=== PATIENT | male | born 1955 | race Caucasian/White ===

== ENCOUNTER 2018-11-08 10:00 | Inpatient (IN) | payer OTHER ==
[~2018-11-08] VITALS: Ht 177.8 cm; Wt 62.6 kg
[~2018-11-08 10:00] MED LIST: ACET325; BENZ2; CETI5; Carbidopa-Levo1 EAC1 PO; DOCU100 PO; FLONASE ALLERG9.9 ML; IBUP100S; LEVSOD75 PO; OLAN5 PO; OMEPRAZOLE MAGN20 MG; REFRESH OPTIVE1 EACH; [UNRECOGNIZED DRUG - OTHER]
[2018-11-08 10:20] LABS: BASOPHILS ABSOLUTE AUTO 0.03 K/mm3 (0.00-0.23); BASOPHILS PERCENT AUTO 1 % (0-2); EOSINOPHILS ABSOLUTE AUTO 0.02 K/mm3 (0.00-0.68); EOSINOPHILS PERCENT AUTO 0 % (0-6); Hematocrit 34.7 % (37.0-53.0); Hemoglobin 11.7 g/dL (13.5-17.5); IMMATURE GRAN ABSOLUTE AUTO 0.02 K/mm3 (0.00-0.10); IMMATURE GRAN PERCENT AUTO 0 % (0-1); LYMPHOCYTES ABSOLUTE AUTO 1.48 K/mm3 (0.84-5.20); LYMPHOCYTES PERCENT AUTO 33 % (21-46); MONOCYTES ABSOLUTE AUTO 0.46 K/mm3 (0.16-1.47); MONOCYTES PERCENT AUTO 10 % (4-13); Mean Corpuscular HGB 32.2 pg (26.0-34.0); Mean Corpuscular HGB Conc 33.7 g/dL (31.5-36.5); Mean Corpuscular Volume 96 fL (80-100); NEUTROPHILS PERCENT AUTO 56 % (41-73); Platelet Count 157 K/mm3 (150-400); RDW Coefficient Variation 12.3 % (11.7-14.2); RDW Standard Deviation 42.6 fL (35.1-46.3); Red Blood Cell Count 3.63 M/mm3 (4.30-5.90); White Blood Cell Count 4.51 K/mm3 (4.00-11.30)
[2018-11-08 10:39] LABS: Alanine Aminotransfer (ALT/SGP 15 U/L (12-78); Albumin, Blood 3.3 g/dL (3.4-5.0); Albumin/Globulin Ratio 1.1 (0.8-1.8); Alk Phos 56 U/L (50-136); Anion Gap 3 mmol/L (6-16); Aspartate Aminotrans (AST/SGOT 11 U/L (12-37); Bilirubin, Total 0.3 mg/dL (0.1-1.0); Blood Urea Nitrogen 27 mg/dL (8-24); Bun/Creatinine Ratio 24.1 (12.0-20.0); CO2, Blood 30 mmol/L (21-32); Calcium, Blood 8.2 mg/dL (8.5-10.1); Chloride, Blood 108 mmol/L (98-108); Creatinine, Blood 1.12 mg/dL (0.60-1.20); Globulin, Blood 2.9 g/dL (2.2-4.0); Glomerular Filtration Rate >60 (60-); Glucose, Blood 119 mg/dL (70-99); Potassium, Blood 4.2 mmol/L (3.5-5.5); Sodium, Blood 141 mmol/L (136-145); Total Protein, Blood 6.2 g/dL (6.4-8.2); Troponin I <0.015 ng/mL (0.000-0.040)
[2018-11-08] MEDS ORDERED: BENZ2 PO (11:16)
[2018-11-08] MEDS ORDERED: Zantac150 MG PO (11:17)
[2018-11-08] MEDS ORDERED: ERYT1OIN BOTHEYES (11:17)
[2018-11-08] MEDS ORDERED: CYCL0.05OP BOTHEYES (11:20)
[2018-11-08 11:26] LABS: Source, Urine Clean Catch
[2018-11-08 11:39] LABS: Bilirubin, Urine Neg (Neg); Blood, Urine Neg (Neg); Glucose Qualitative, Urine Neg (Neg); Ketones, Urine Neg (Neg); Leukocyte Esterase, Urine Neg (Neg); Nitrite, Urine Neg (Neg); Protein, Urine Neg (Neg); Urobilinogen, Urine NORM (Normal)
[2018-11-08 11:51] LABS: Appearance, Urine Clear (Clear); Color, Urine Yellow (P-Yellow)
[2018-11-08 12:01] LABS: U Amphetamine Screen Not Detected; U Barbituate Screen Not Detected; U Benzodiazapine Screen Not Detected; U Buprenorphine Screen Not Detected; U Cannabinoids Screen Not Detected; U Cocaine Screen Not Detected; U Methadone Screen Not Detected; U Methamphetamine Screen Not Detected; U Opiates Screen Not Detected; U Oxycodone Screen Not Detected; U Phencyclidine Screen Not Detected; U Propoxyphene Screen Not Detected
[2018-11-08] MEDS ORDERED: LEVSOD100 PO (14:06)
[2018-11-08] MEDS ORDERED: Refresh Eye Dr1 EACH BOTHEYES (14:07)
[2018-11-08] MEDS ORDERED: OLAN5 PO (14:08)
[2018-11-08] MEDS ORDERED: Ibuprofen Ib200 MG PO (14:11)
[2018-11-08] MEDS ORDERED: TRIPLE ANTIBIO1 EACH TOP (14:12)
[2018-11-08] MEDS ORDERED: Cetirizine HCl10 MG PO (14:12)
[2018-11-08] MEDS ORDERED: Flonase 0.05% N16 GM (14:13)
--- NOTE | 2018-11-08 18:35 | NUR ---
RECEIVED REPORT FROM SHOOK MACHINE OPERATOR AND ASSUMED CARE OF PATIENT. THIS PATIENT IS NON-VERBAL, HE DOSE SHAKE HIS HEAD AND TRY TO VERBALIZE YES/NO TO ANSWER YES/NO QUESTIONS. HE DID SAY "PAU" WHEN I ASKED IF HE LIKES TO BE CALLED DON, OR PAU. NO OTHER WORDS RECOGNIZED TO THIS POINT. COMPLETED ADMISSION PAPERWORK FROM PRIOR HISTORY NO CAREGIVER AT BEDSIDE. WILL CONTINUE TO MONITOR AND GIVE REPORT TO NOC RN.
[2018-11-09 04:18] LABS: BASOPHILS ABSOLUTE AUTO 0.03 K/mm3 (0.00-0.23); BASOPHILS PERCENT AUTO 1 % (0-2); EOSINOPHILS ABSOLUTE AUTO 0.04 K/mm3 (0.00-0.68); EOSINOPHILS PERCENT AUTO 1 % (0-6); Hematocrit 34.8 % (37.0-53.0); Hemoglobin 11.6 g/dL (13.5-17.5); IMMATURE GRAN ABSOLUTE AUTO 0.02 K/mm3 (0.00-0.10); IMMATURE GRAN PERCENT AUTO 0 % (0-1); LYMPHOCYTES ABSOLUTE AUTO 1.32 K/mm3 (0.84-5.20); LYMPHOCYTES PERCENT AUTO 27 % (21-46); MONOCYTES ABSOLUTE AUTO 0.47 K/mm3 (0.16-1.47); MONOCYTES PERCENT AUTO 10 % (4-13); Mean Corpuscular HGB 32.2 pg (26.0-34.0); Mean Corpuscular HGB Conc 33.3 g/dL (31.5-36.5); Mean Corpuscular Volume 97 fL (80-100); Mean Platelet Volume 10.4 fL (9.1-12.4); NEUTROPHILS ABSOLUTE AUTO 3.06 K/mm3 (1.96-9.15); NEUTROPHILS PERCENT AUTO 62 % (41-73); Platelet Count 158 K/mm3 (150-400); RDW Coefficient Variation 12.3 % (11.7-14.2); RDW Standard Deviation 43.8 fL (35.1-46.3); White Blood Cell Count 4.94 K/mm3 (4.00-11.30)
[2018-11-09 04:44] LABS: Anion Gap 6 mmol/L (6-16); Blood Urea Nitrogen 19 mg/dL (8-24); Bun/Creatinine Ratio 22.7 (12.0-20.0); CO2, Blood 27 mmol/L (21-32); Calcium, Blood 7.9 mg/dL (8.5-10.1); Chloride, Blood 111 mmol/L (98-108); Creatinine, Blood 0.84 mg/dL (0.60-1.20); Glomerular Filtration Rate >60 (60-); Glucose, Blood 84 mg/dL (70-99); Potassium, Blood 3.8 mmol/L (3.5-5.5); Sodium, Blood 144 mmol/L (136-145)
--- NOTE | 2018-11-09 05:08 | NUR ---
SHIFT SUMMARY: PATIENT BLADDER SCAN REVEALED >999, MD NOTIFIED, ORDERS RECIEVED. UO WAS 1100, VSS, CALL LIGHT WITHIN REACH, PATIENT LETHARGIC BUT WOKE WITH PHYSICAL STIMULUS. BED LOW AND LOCKED WITH EXIT ALARM ON.
[2018-11-09 05:20] LABS: Source, Urine Catheter
[2018-11-09 05:28] LABS: Bilirubin, Urine Neg (Neg); Blood, Urine Neg (Neg); Glucose Qualitative, Urine Neg (Neg); Ketones, Urine Neg (Neg); Leukocyte Esterase, Urine Neg (Neg); Nitrite, Urine Neg (Neg); Protein, Urine Neg (Neg); Specific Gravity, Urine 1.015 (1.003-1.022); Urobilinogen, Urine NORM (Normal)
[2018-11-09 05:37] LABS: Appearance, Urine Clear (Clear); Color, Urine Yellow (P-Yellow)
--- NOTE | 2018-11-09 08:09 | NUR ---
pt laying in bed on his side, wakes easily, follows commands but needs lot of direction, seems very impulsive, alert, speech is garbled, yes/no is clear, denies pain, lungs are clear t/o, resp even and unlabored, no cough noted, hrr, tele in place running sr per monitor, see strip, no edema noted, ppp+2, cap refill <3sec, vs stable, afebrile, iv sites are clear and patent, btx4, abd flat soft nontender, voids via salter at this time, skin c/w/d, maew, marlin, call light in reach.
--- NOTE | 2018-11-09 13:30 | NUR ---
pt resting in bed, sleeps when left undisturbed. no complaints, is a bit easier to understand. sbp is over 100 will change to medical status. call light in reach.
--- NOTE | 2018-11-09 17:46 | NUR ---
PT WILL BE MOVING TO MEDICAL FLOOR, REPORT TO JOHNNA WEAVER, WILL TAKE PT AND ALL BELONGINGS. HAVE BEEN DOING BLADDER TRAINING. CALL LIGHT IN REACH.
--- NOTE | 2018-11-09 18:18 | NUR ---
PT WAS TAKEN TO MEDICAL FLOOR VIA BED WITH CHARGE NURSE AND MULTI SHARE PROGRAM COORDINATOR.
--- NOTE | 2018-11-09 18:50 | NUR ---
SHIFT SUMMARY PATIENT TRANSFERED FROM PCU 5. A&O X4. SPEECH IS GARBLED AND HARD TO UNDERSTAND. DENIES ANY PAIN, SOB, OR NAUSEA. BED ALARM IS IN PLACE. RN WILL CONTINUE TO MONITOR.
--- NOTE | 2018-11-10 04:33 | NUR ---
SHIFT SUMMARY: 63 Y/O MALE RESTED COMFORTABLY ALL SHIFT. PT OCCASIONALLY TRIES CLIMB OOB AND FOLLOWS REDIRECTION BY STAFF WELL. PT MUMBLES INCOHERENT WORDS AND VOICES ONLY YES/NO RESPONSES TO NURSING STAFF. PT APPEARS TO HAVE NO PAIN OR NAUSEA. FREY DRAINING CLEAR YELLOW FLUID (BLADDER TRAINING WITH FREY CLAMPED FOR SHORT INTERVALS LAST NIGHT). PTS BED ALARM APPLIED, BED LOW POSITION, CALL LIGHT AT SIDE.
--- NOTE | 2018-11-10 08:40 | NUR ---
PT PLEASANT COOP SPEAKS GARBLED. ANS YES NO QUEST. ORIENTED TO SELF. HARD TO UNDERSTAND. FOLLOWS SOME COMMANDS. IS SPONTANEOUS, IMPULSIVE. JUMPED UPFROM CHAIR TO BED. HAD TO REDIRECT. STATES MONTH OF B/DAY. KNOWS HERE AT HOSP.H/AR REG, NO MURMER NOTED. PER TELE: NSR AT 82. LUNGS CLEAR, RESP EASY, UNLABORED. ON R/A. BT X4 LAST BM NOT KNOWN BY PT. VOIDS FREY CATH. CLEAR YELLOW FLUID. BED IN LOW POSITION, CALL LITE IN REACH, BED ALARM ON FOR SAFETY
[2018-11-10] MEDS ORDERED: Refresh Plus1 EACH BOTHEYES (12:42)
[2018-11-10] MEDS ORDERED: TAMS.4ER PO (12:42)
--- NOTE | 2018-11-10 16:13 | NUR ---
called dr hirsch at 1600. pt not urinating since d/c gaetano. scan shows 1000+ retention. getting pt to toilet to try in addition to stand for urinal to urinate. if no results call her back.
--- NOTE | 2018-11-10 18:36 | NUR ---
DID TRY TO GET PT TO URINATE ON OWN MANY TIMES TODAY. ONLY ONCE SMALL AMT SUCCESSFUL. AFTER TALK TO DR CONTRERAS, ORDERS FOR STRAIGHT CATH IF OVER 350 CC AND BLADDER SCAN Q8. DID CATH THIS NIKUNJ AND PUT OUT 950. CALLED ALF AND ADVISED HE STAYING TONITE FOR SURE. PT STILL GARBLED TALKING, BUT MORE COHEARANT. NO OTHER COONCERNS AT THIS TIME. BED IN LOW POSITION, CALL LITE IN REACH, BED ALARM ON FOR SAFETY
--- NOTE | 2018-11-11 04:45 | NUR ---
SHIFT SUMMARY: 63 Y/O MALE HAD RESTLESS NIGHT AT BEGINNING OF SHIFT WITH PATIENT HAVING INABILITY TO VOID AFTER FREY CATHETER WAS DISCONTINUED ON DAY SHIFT. PT WAS BLADDER SCANNED AT 0130 FOR 927ML AND WAS THUS STRAIGHT CATHED FOR 900ML CLEAR YELLOW FLUID. PT VOICED RELIEF AFTER PROCEDURE COMPLETED. PT HAS NOT VOIDED SINCE CATHETERIZATION COMPLETED WITH ONCOMING DAY SHIFT RN ADVISED. PT CONTINUES TO MUMBLE WORDS THAT ARE NOT UNDERSTANDABLE TO STAFF; PT IS ABLE TO FOLLOW VERY SIMPLE VERBAL COMMANDS AND RESPONDS WITH YES OR NO ANSWERS. PT DENIES PAIN OR NAUSEA. PTS BALANCE AND ABILITY TO AMBULATE VERY UNSTEADY WITH ONE STANDBY ASSIST REQUIRED AT ALL TIMES. PT VERY IMPULSIVE AT TIMES AND REQUIRES LOTS REDIRECTION BY STAFF. PTS BED ALARM APPLIED ALL SHIFT, BED LOW POSITION, CALL LIGHT AT SIDE.
--- NOTE | 2018-11-11 07:09 | NUR ---
0630 PT RESTING QUIETLY, NO VOID NOTED ALL NIGHT SINCE STRAIGHT CATHETERIZATION DONE AT 0130. PT WALKED INTO BATHROOM BY STAFF WITH NO SUCCESS VOIDING.
--- NOTE | 2018-11-11 19:20 | NUR ---
PT AOX2 HARD TO UNDERSTAND. PT SEEMS TO BE AT BASELINE. PT WAS ABLE TO VOID THIS AM, BUT THE DAY PROGRESSED BEGAN TO HAVE TROUBLE VOIDING. PT WAS STAIGHT CATHED AFTER SECOND BLADDER SCAN GETTING 450 MLS OUPUT. PT IS VERY IMPULSIVE AND FAST AND GETS OUT OF BED OR CHAIR SETTING OF ALARM THROUGHOUT THE DAY. WILL CONTINUE TO MONITOR.
--- NOTE | 2018-11-12 01:50 | NUR ---
11/11/18 2330 BLADDER SCANNED FOR GREATER THAN 1000 ML. 11/12/18 0010 PT GOT UP AND VOIDED 500 ML. PT WAS BLADDER SCANNED AGAIN POST VOID WITH 500ML NOTED. THIS NURSE REVIEWED FINDINGS WITH JULIO C BOWDEN ORGANIC SECTION TECHNICAL LEAD NURSE AND STAFF WILL WALK PATIENT INTO BATHROOM AND ATTEMPT VOID AGAIN TILL 0300 AND THEN RECHECK BLADDER SCAN.
--- NOTE | 2018-11-12 04:34 | NUR ---
SHIFT SUMMARY: 63 Y/O MALE RESTED COMFORTABLY ALL SHIFT. PT WAS ABLE TO VOID ONCE, HOWEVER; HAD 550ML BLADDER SCAN AFTER VOID, THUS WAS STRAIGHT CATHED X 1 FOR 550ML, TOLERATED PROCEDURE WELL. PT ALERT AND ORIENTED X 3, ABLE TO FOLLOW SIMPLE VERBAL COMMANDS, VERY IMPULSIVE AT TIMES (BED ALARM APPLIED), DENIES PAIN OR NAUSEA. PT ONLY ABLE TO MUMBLE WORDS THAT ARE NOT UNDERSTANDABLE, ANSWERS WITH YES/NO RESPONSES ONLY. PT BED LOW POSITION, CALL LIGHT AT SIDE.
--- NOTE | 2018-11-12 10:55 | NUR ---
PT REQUIRED STRAIGHT CATH AT THIS TIME FOR BLADDER SCAN GREATER THAN 600ML, 550ML DRAINED FROM BLADDER.
--- NOTE | 2018-11-12 17:20 | NUR ---
SHIFT SUMMARY. PT HAS VOIDED THIS AFTERNOON, WHICH WAS ONCE THIS SHIFT UNASSISTED, POST VOID RESIDUAL GREATER THAN 350ML. PT REQUIRED TO BE STRAIGHT CATHED LATE THIS MORNING FOR BLADDER SCAN OF 650. BED/CHAIR ALARM FOR SAFETY PT IS IMPULSIVE AND HIGH FALL RISK. PT DENEIS PAIN, SOB, N/V. NO OTHER CHANGES.
--- NOTE | 2018-11-13 04:21 | NUR ---
SHIFT SUMMARY: 63 Y/O MALE RESTED COMFORTABLY ALL SHIFT. PT WAS UNABLE TO VOID ALL SHIFT, BLADDER SCANNED FOR OVER 999ML AND THEN STRAIGHT CATHED FOR 950ML, TOLERATED PROCEDURE WELL. PT CONTINUES TO BE IMPULSIVE AT TIMES WITH BED ALARM SET OFF, PT GAIT UNSTEADY VIA WALKER X 1 STANDBY ASSIST. PT ABLE TO FOLLOW SIMPLE VERBAL COMMANDS, WORDS ARE ALL GARBLED WHEN SPOKEN BY PATIENT. PT DENIES PAIN OR NAUSEA (NO MOANING NOTED). PTS BED LOW POSITION, CALL LIGHT AT SIDE.
--- NOTE | 2018-11-13 09:54 | NUR ---
PT WITH UNMEASURED VOID IN TOILET AT 0830. 0930 POST VOID RESIDUAL BLADDER SCAN 212ML.
--- NOTE | 2018-11-13 12:55 | NUR ---
SPOKE WITH DR. IVY IN REGARDS TO PT VOIDING TWICE UNASSISTED AND POST VOID RESIDUAL MD MORA REPORTED THAT SHE WOULD SEE THE PT NEXT THE CAREGIVER REPORTED TO THIS RN THAT THE PT COULD BE PICKED UP IF THE D/C WAS COMPLETED BEFORE 1400.
--- NOTE | 2018-11-13 12:57 | NUR ---
PT'S SKILLED NURSING NOTIFIED THAT MD WAS TO SEE PT NEXT AND ATTEMPT TO HAVE D/C COMPLETED PRIOR TO 1400.
--- NOTE | 2018-11-13 16:21 | NUR ---
1603 PT DISCHARGED TO [facility] VIA W/C TRANSPORT, FACILITY AWARE THAT PT HAD BEEN PICKED UP. D/C PACKET SENT WITH PT. NEW RX FAXED TO [facility] IN [place] PER [facility] PREFERENCE. PT HAD 4 UNMEASURED VOIDS THIS SHIFT. NO FURTHER ISSUES WITH RETENTION. NO NEW CHANGES OR CONCERNS.
== END 2018-11-13 16:03 | disposition home or self-care (01) | DRG 725 ==
LOC: ER 10:00 → PCU 10:01 → ERHOLD 10:01 → PCU 17:09 → MEDS 11-09 18:14 → ENPENDDIS 11-13 14:40 → MEDS 11-13 16:03
PROVIDERS: Emergency Medicine; Internal Medicine; ADMIT Internal Medicine
DX: N40.1 Benign prostatic hyperplasia with lower urinary tract symptoms (principal); G92 Toxic encephalopathy; F20.5 Residual schizophrenia; R33.8 Other retention of urine; I95.9 Hypotension, unspecified; F32.9 Major depressive disorder, single episode, unspecified; K21.9 Gastro-esophageal reflux disease without esophagitis; E03.9 Hypothyroidism, unspecified; T50.905A Adverse effect of unspecified drugs, medicaments and biological substances, initial encounter; Y92.9 Unspecified place or not applicable
CPT/HCPCS: 36415; 51701; 51702; 70450; 71045; 80048; 80053; 81003; 83690; 83880; 84443; 84484; 85025; 85379; 93005; 93010; 96361; 96374; 99285-25; J1650; J2405; J7030; J7120

== ENCOUNTER 2019-06-07 08:14 | Emergency (ER) | payer OTHER ==
[~2019-06-07] VITALS: Ht 180.3 cm; Wt 65.8 kg
[~2019-06-07 08:14] MED LIST changes: +BENZ2 PO; +CYCL0.05OP BOTHEYES; +Cetirizine HCl10 MG PO; +ERYT1OIN BOTHEYES; +Flonase 0.05% N16 GM; +Ibuprofen Ib200 MG PO; +LEVSOD100 PO; +Refresh Eye Dr1 EACH BOTHEYES; +Refresh Plus1 EACH BOTHEYES; +TAMS.4ER PO; +TRIPLE ANTIBIO1 EACH TOP; +Zantac150 MG PO
[2019-06-07] MEDS ORDERED: LACTULOSE20 GM/30 M PO (10:37)
[2019-06-07] MEDS ORDERED: CEPH500 PO (11:40)
[2019-06-07 11:44] LABS: Source, Urine Clean Catch
[2019-06-07 11:56] LABS: Bilirubin, Urine Neg (Neg); Blood, Urine Neg (Neg); Glucose Qualitative, Urine Neg (Neg); Ketones, Urine 1+ (Neg); Leukocyte Esterase, Urine Neg (Neg); Nitrite, Urine Neg (Neg); Protein, Urine Neg (Neg); Urobilinogen, Urine NORM (Normal)
[2019-06-07 12:12] LABS: Appearance, Urine Clear (Clear); Color, Urine Yellow (P-Yellow)
== END 2019-06-07 12:38 | disposition home or self-care (01) ==
LOC: ER 08:14
PROVIDERS: Physician Assistant
DX: R33.9 Retention of urine, unspecified (principal); K59.00 Constipation, unspecified; E03.9 Hypothyroidism, unspecified; Z79.899 Other long term (current) drug therapy
CPT/HCPCS: 51798; 74019; 81003; 99283-25

== ENCOUNTER → 2022-03-31 | Outpatient (CLI) | payer OTHER ==
[~2022-03-31] MED LIST changes: +CEPH500 PO; +LACTULOSE20 GM/30 M PO
== END ==
LOC: LAB 12:39 → LAB SHORT 12:39
DX: R33.9 Retention of urine, unspecified (principal)
CPT/HCPCS: 87086

== ENCOUNTER 2022-04-13 10:45 | Emergency (ER) | payer OTHER ==
[~2022-04-13] VITALS: Ht 180.3 cm; Wt 62.1 kg
[2022-04-13] MEDS ORDERED: QUET100 (11:16)
[2022-04-13] MEDS ORDERED: Seroquel Xr50 MG (11:17)
[2022-04-13] MEDS ORDERED: PEPCID20 MG PO (11:17)
[2022-04-13] MEDS ORDERED: MIRALAX17 GM PO (11:17)
[2022-04-13] MEDS ORDERED: MULVITA (11:18)
[2022-04-13] MEDS ORDERED: METAMUCIL POWD798 GM (11:18)
[2022-04-13] MEDS ORDERED: PROBIOTIC1 EA13 PO (11:18)
[2022-04-13] MEDS ORDERED: MELATONIN5 M1 (11:18)
[2022-04-13] MEDS ORDERED: BENZ1 PO (11:19)
[2022-04-13] MEDS ORDERED: PANT40 PO (11:19)
[2022-04-13] MEDS ORDERED: Seroquel Xr50 MG PO (11:19)
[2022-04-13] MEDS ORDERED: CITRATE OF MAG296 M1 (11:20)
[2022-04-13] MEDS ORDERED: SENNA LAXATIVE8.6 MG PO (13:18)
== END 2022-04-13 13:34 | disposition home or self-care (01) ==
LOC: ER 10:45
DX: S30.0XXA Contusion of lower back and pelvis, initial encounter (principal); W19.XXXA Unspecified fall, initial encounter; K59.00 Constipation, unspecified; G20 Parkinson's disease; E03.9 Hypothyroidism, unspecified; Z87.891 Personal history of nicotine dependence; Z79.899 Other long term (current) drug therapy
CPT/HCPCS: 74176; A9270

== ENCOUNTER 2022-04-15 12:47 | Emergency (ER) | payer OTHER ==
[~2022-04-15] VITALS: Ht 180.3 cm; Wt 60.8 kg
[~2022-04-15 12:47] MED LIST changes: +BENZ1 PO; +CITRATE OF MAG296 M1; +MELATONIN5 M1; +METAMUCIL POWD798 GM; +MIRALAX17 GM PO; +MULVITA; +PANT40 PO; +PEPCID20 MG PO; +PROBIOTIC1 EA13 PO; +QUET100; +SENNA LAXATIVE8.6 MG PO; +Seroquel Xr50 MG; +Seroquel Xr50 MG PO
[2022-04-15 16:22] LABS: BASOPHILS ABSOLUTE AUTO 0.07 K/mm3 (0.00-0.23); BASOPHILS PERCENT AUTO 1 % (0-2); EOSINOPHILS ABSOLUTE AUTO 0.09 K/mm3 (0.00-0.68); EOSINOPHILS PERCENT AUTO 1 % (0-6); Hemoglobin 12.2 g/dL (13.5-17.5); IMMATURE GRAN ABSOLUTE AUTO 0.19 K/mm3 (0.00-0.10); IMMATURE GRAN PERCENT AUTO 2 % (0-1); LYMPHOCYTES ABSOLUTE AUTO 1.57 K/mm3 (0.84-5.20); LYMPHOCYTES PERCENT AUTO 19 % (21-46); MONOCYTES ABSOLUTE AUTO 0.84 K/mm3 (0.16-1.47); MONOCYTES PERCENT AUTO 10 % (4-13); Mean Corpuscular HGB Conc 34.9 g/dL (31.5-36.5); Mean Corpuscular Volume 95 fL (80-100); Mean Platelet Volume 9.3 fL (9.1-12.4); NEUTROPHILS ABSOLUTE AUTO 5.74 K/mm3 (1.96-9.15); NEUTROPHILS PERCENT AUTO 68 % (41-73); Platelet Count 247 K/mm3 (150-400); RDW Coefficient Variation 11.6 % (11.7-14.2); RDW Standard Deviation 40.3 fL (35.1-46.3)
[2022-04-15 16:40] LABS: Albumin, Blood 3.3 g/dL (3.4-5.0); Albumin/Globulin Ratio 0.8 (0.8-1.8); Bilirubin, Total 0.2 mg/dL (0.1-1.0); Bun/Creatinine Ratio 21.4 (12.0-20.0); Calcium, Blood 9.3 mg/dL (8.5-10.1); Creatinine, Blood 1.03 mg/dL (0.60-1.20); Globulin, Blood 3.9 g/dL (2.2-4.0); Potassium, Blood 4.2 mmol/L (3.5-5.5); Total Protein, Blood 7.2 g/dL (6.4-8.2)
[2022-04-15 18:27] LABS: Source, Urine Foley catheter
[2022-04-15 18:32] LABS: Appearance, Urine Hazy (Clear); Bilirubin, Urine Neg (Neg); Blood, Urine 4+ (Neg); Color, Urine Yellow (P-Yellow); Glucose Qualitative, Urine Neg (Neg); Ketones, Urine Neg (Neg); Leukocyte Esterase, Urine 3+ (Neg); Nitrite, Urine Neg (Neg); Protein, Urine 3+ (Neg); Specific Gravity, Urine 1.015 (1.003-1.022); Urobilinogen, Urine NORM (Normal)
[2022-04-15 18:40] LABS: Bacteria Mod /hpf; Squamous Epithelial Cells Rare /hpf (Few)
[2022-04-15] MEDS ORDERED: CEPH500 PO (19:20)
== END 2022-04-15 19:32 | disposition home or self-care (01) ==
LOC: ER 12:47
PROVIDERS: Student in an Organized Health Care Education/Training Program
DX: N48.5 Ulcer of penis (principal); K59.00 Constipation, unspecified; E03.9 Hypothyroidism, unspecified; K21.9 Gastro-esophageal reflux disease without esophagitis; Z88.8 Allergy status to other drugs, medicaments and biological substances; Z79.899 Other long term (current) drug therapy; Z87.891 Personal history of nicotine dependence
CPT/HCPCS: 36415; 74018; 80053; 81001; 83605; 85025; A9270

== ENCOUNTER 2022-06-13 17:21 | Inpatient (IN) | payer OTHER ==
[~2022-06-13] VITALS: Ht 175.3 cm; Wt 61.2 kg
[~2022-06-13 17:21] MED LIST changes: +CARBIDOPA-LEVO1 EA15 PO; -Carbidopa-Levo1 EAC1 PO; -MELATONIN5 M1; +MELATONIN5 M1 PO; -MULVITA; +MULVITA PO; -QUET100; +QUETIAPINE FUM400 M3 PO
[2022-06-13 18:46] LABS: BASOPHILS ABSOLUTE AUTO 0.07 K/mm3 (0.00-0.23); BASOPHILS PERCENT AUTO 0 % (0-2); EOSINOPHILS ABSOLUTE AUTO 0.06 K/mm3 (0.00-0.68); EOSINOPHILS PERCENT AUTO 0 % (0-6); Hematocrit 40.2 % (37.0-53.0); Hemoglobin 13.8 g/dL (13.5-17.5); IMMATURE GRAN ABSOLUTE AUTO 0.07 K/mm3 (0.00-0.10); IMMATURE GRAN PERCENT AUTO 0 % (0-1); LYMPHOCYTES ABSOLUTE AUTO 1.59 K/mm3 (0.84-5.20); LYMPHOCYTES PERCENT AUTO 9 % (21-46); MONOCYTES ABSOLUTE AUTO 0.85 K/mm3 (0.16-1.47); MONOCYTES PERCENT AUTO 5 % (4-13); Mean Corpuscular HGB 32.5 pg (26.0-34.0); Mean Corpuscular HGB Conc 34.3 g/dL (31.5-36.5); Mean Corpuscular Volume 95 fL (80-100); Mean Platelet Volume 9.2 fL (9.1-12.4); NEUTROPHILS ABSOLUTE AUTO 15.73 K/mm3 (1.96-9.15); NEUTROPHILS PERCENT AUTO 86 % (41-73); Platelet Count 272 K/mm3 (150-400); RDW Coefficient Variation 12.3 % (11.7-14.2); RDW Standard Deviation 42.6 fL (35.1-46.3); Red Blood Cell Count 4.25 M/mm3 (4.30-5.90); White Blood Cell Count 18.37 K/mm3 (4.00-11.30)
[2022-06-13 19:14] LABS: Albumin, Blood 4.1 g/dL (3.4-5.0); Bilirubin, Total 0.4 mg/dL (0.1-1.0); Bun/Creatinine Ratio 17.4 (12.0-20.0); Calcium, Blood 9.5 mg/dL (8.5-10.1); Creatinine, Blood 1.21 mg/dL (0.60-1.20); Globulin, Blood 4.1 g/dL (2.2-4.0); Potassium, Blood 4.1 mmol/L (3.5-5.5); Total Protein, Blood 8.2 g/dL (6.4-8.2)
[2022-06-13 20:37] LABS: Source, Urine Foley catheter
[2022-06-13 20:39] LABS: Bilirubin, Urine Neg (Neg); Blood, Urine 4+ (Neg); Glucose Qualitative, Urine Neg (Neg); Ketones, Urine Neg (Neg); Leukocyte Esterase, Urine 3+ (Neg); Nitrite, Urine Neg (Neg); Protein, Urine 2+ (Neg); Urobilinogen, Urine NORM (Normal)
[2022-06-13 20:51] LABS: Appearance, Urine Hazy (Clear); Color, Urine Pale Yellow (P-Yellow)
[2022-06-13 20:52] LABS: Bacteria Many /hpf
[2022-06-13 20:53] LABS: Amorphous Mod (0-Heavy); Squamous Epithelial Cells Rare /hpf (Few)
--- NOTE | 2022-06-14 04:59 | NUR ---
NEW ADMIT/SHIFT SUMMARY PT ARRIVED T/ROOM AT 2345. A/OX TO SELF. PT IS UNABLE TO VERBALLY COMMUNICATE. PT CAN RESPOND TO YES OR NO QUESTIONS WITH A THUMBS UP OR DOWN WHEN PROMPTED. PT ADMIT W/UTI; CAME TO ED W/PERSONAL SUPPORT PERSON. PT LIVES IN A [facility]. FACILITY CONTACT NUMBER IS [phone]. PERSONAL SUPPORT/EMERGENCY CONTACT IS RM; [phone]; PT ABLE TO VERIFY WITH A THUMBS UP THAT RM IS OK TO TALK TO REGARDING HIS CARE. PT IS WHEELCHAIR BOUND AT BASELINE; WHEEL CHAIR IN ROOM. PT ARRIVED TO ED W/CHRONIC FREY. NEW FREY PLACED IN ED. FREY PATENT AND DRAINING TO GRAVITY. PERSONAL SUPPORT LEFT HAND WRITTEN NOTE WITH DETAILS REGARDING PAU BOWMAN'S CARE; TOTAL CARE WITH ALL HYGIENE NEEDS. FORGETS LIMITATIONS AND ATTEMPTS OOB/XFERING W/O ASSISTANCE; BED ALARMS USED. MODIFIED FOOD; SOFT/PUREE DIET, NECTAR/HONEY THICK LIQUIDS, NO STRAWS. HX HALLUCINATIONS/DELLUSIONS. DOES NOT LIKE THE DARK. CAN BECOME FRUSTRATED AND YELL; PT CAN NOT BLINK CORRECTLY AND REQUIRES EYE DROPS SEVERAL TIMES A DAY. THIS IS A SUMMARY OF THE NOTES; HAND WRITTEN NOTES PLACED IN PT FILE. PT HAS LEFT AC IF; INFUSING 1 BAG NS; 125MLS HOUR. SKIN IS INTACT; SECOND PACU RN WITH BELKYS LEE. ORIENTED PT TO ROOM AND CALL LIGHT. PT WAS ABLE TO TELL ME WHAT BUTTON TO PUSH FO ASSISTANCE. UNSURE IF PT WILL BE ABLE TO USE CALL LIGHT; WILL CONT WITH REGULAR ROUNDING. BED BRITTNY/LOW. ALARM SET. PT HAS NOT BEEN IMPULSIVE SO FAR. WILL CONT T/MONITOR.
[2022-06-14 07:28] LABS: BASOPHILS ABSOLUTE AUTO 0.05 K/mm3 (0.00-0.23); BASOPHILS PERCENT AUTO 1 % (0-2); EOSINOPHILS ABSOLUTE AUTO 0.08 K/mm3 (0.00-0.68); EOSINOPHILS PERCENT AUTO 1 % (0-6); Hemoglobin 11.9 g/dL (13.5-17.5); IMMATURE GRAN ABSOLUTE AUTO 0.02 K/mm3 (0.00-0.10); IMMATURE GRAN PERCENT AUTO 0 % (0-1); LYMPHOCYTES ABSOLUTE AUTO 1.48 K/mm3 (0.84-5.20); LYMPHOCYTES PERCENT AUTO 18 % (21-46); MONOCYTES ABSOLUTE AUTO 0.66 K/mm3 (0.16-1.47); MONOCYTES PERCENT AUTO 8 % (4-13); Mean Corpuscular Volume 97 fL (80-100); Mean Platelet Volume 9.5 fL (9.1-12.4); NEUTROPHILS ABSOLUTE AUTO 5.94 K/mm3 (1.96-9.15); NEUTROPHILS PERCENT AUTO 72 % (41-73); Platelet Count 204 K/mm3 (150-400); RDW Coefficient Variation 12.3 % (11.7-14.2); RDW Standard Deviation 43.6 fL (35.1-46.3); Red Blood Cell Count 3.61 M/mm3 (4.30-5.90); White Blood Cell Count 8.23 K/mm3 (4.00-11.30)
[2022-06-14 07:42] LABS: Bun/Creatinine Ratio 16.2 (12.0-20.0); Calcium, Blood 8.6 mg/dL (8.5-10.1); Creatinine, Blood 1.11 mg/dL (0.60-1.20); Potassium, Blood 3.9 mmol/L (3.5-5.5)
--- NOTE | 2022-06-14 17:38 | NUR ---
SHIFT SUMMARY NO ACUTE CHANGES DURING SHIFT. PT FOLLOWS SIMPLE COMMANDS, THUMBS UP OR DOWN FOR RESPONSE, NONCOMPREHENSABLE VERBAGE. CHRONIC FREY IN PLACE, DRAINING TO GRAVITY. PT REMAINS ON RA. INTERMITTENT COMPULSIVENESS. SMALL BM X 2, INCONTINENT, ATTENDS IN PLACE. WILL CONTINUE TO MONITOR. CALL LIGHT WITHIN REACH.
--- NOTE | 2022-06-15 04:12 | NUR ---
SHIFT SUMMARY NOC NO ACUTE CHANGES TO REPORT. PT ABLE TO FOLLOW SIMPLE COMMANDS AND RESPONDS TO THUMBS UP OR DOWN. NONSENSICLE AND NONCOMPREHSABLE VERBAGE. PT HAS CX FREY INTACT AND PATENT DRAINING YELLOW URINE TO GRAVITY. PT IS CURRENTLY RESTING WITH BED ALARM ON, BED IN LOWEST POSITION, AND CALL LIGHT WITHIN REACH. TM.
[2022-06-15 05:06] LABS: BASOPHILS ABSOLUTE AUTO 0.04 K/mm3 (0.00-0.23); BASOPHILS PERCENT AUTO 1 % (0-2); EOSINOPHILS PERCENT AUTO 3 % (0-6); Hematocrit 33.2 % (37.0-53.0); Hemoglobin 11.5 g/dL (13.5-17.5); IMMATURE GRAN ABSOLUTE AUTO 0.04 K/mm3 (0.00-0.10); IMMATURE GRAN PERCENT AUTO 1 % (0-1); LYMPHOCYTES ABSOLUTE AUTO 2.04 K/mm3 (0.84-5.20); LYMPHOCYTES PERCENT AUTO 28 % (21-46); MONOCYTES ABSOLUTE AUTO 0.75 K/mm3 (0.16-1.47); MONOCYTES PERCENT AUTO 10 % (4-13); Mean Corpuscular HGB Conc 34.6 g/dL (31.5-36.5); Mean Corpuscular Volume 95 fL (80-100); Mean Platelet Volume 9.5 fL (9.1-12.4); NEUTROPHILS ABSOLUTE AUTO 4.12 K/mm3 (1.96-9.15); NEUTROPHILS PERCENT AUTO 57 % (41-73); Platelet Count 206 K/mm3 (150-400); RDW Coefficient Variation 12.5 % (11.7-14.2); RDW Standard Deviation 43.3 fL (35.1-46.3); Red Blood Cell Count 3.48 M/mm3 (4.30-5.90); White Blood Cell Count 7.19 K/mm3 (4.00-11.30)
[2022-06-15 05:30] LABS: Bun/Creatinine Ratio 13.6 (12.0-20.0); Calcium, Blood 8.9 mg/dL (8.5-10.1); Creatinine, Blood 1.18 mg/dL (0.60-1.20); Potassium, Blood 3.9 mmol/L (3.5-5.5)
--- NOTE | 2022-06-15 14:51 | NUR ---
SHIFT SUMMARY PT RESTING QUIETLY AT START OF SHIFT. WOKE EASILY FOR CARE. PT IS MOSTLY NONVERBAL, ABLE TO MAKE GRUNTS AND NOISES WITH THUMBS UP OR DOWN TO COMMUNICATE. PT WITH HX OF CHRONIC FREY, ADMITTED FOR UTI. PER REPORT, FREY CHANGED IN ER PER PROTOCOL. PT FROM LOCAL FACILITY AND IS W/C BOUND AT BASELINE. PT ABLE TO STAND AT BS THOUGH AND PULL UP UNDERWEAR. PT ABLE TO GET UP TO EOB TO EAT. PT IS MESSY WHEN FEEDING HIMSELF, BUT DOES WELL WITH ASSISTANCE. DR BOBBY AND DR MICHAEL BOTH IN TO SEE PT THIS AM. URINE CX'S PENDING FOR D/C ON PO ABX. PT IN NO ACUTE DISTRESS. DENIED PAIN OR NEEDS AT THIS TIME. CALL LT IN REACH. BED ALARM ON FOR SAFETY.
[2022-06-15] MEDS ORDERED: VISBIOME 112.51 EACH PO (16:17)
[2022-06-15] MEDS ORDERED: SULTRIDS PO (16:17)
== END 2022-06-15 17:45 | disposition home or self-care (01) | DRG 698 ==
LOC: ER 17:21 → MEDS 17:22
PROVIDERS: Physician Assistant; Student in an Organized Health Care Education/Training Program; ADMIT Hospitalist
DX: T83.511A Infection and inflammatory reaction due to indwelling urethral catheter, initial encounter (principal); A41.50 Gram-negative sepsis, unspecified; N17.9 Acute kidney failure, unspecified; F20.5 Residual schizophrenia; N39.0 Urinary tract infection, site not specified; E03.9 Hypothyroidism, unspecified; F03.90 Unspecified dementia, unspecified severity, without behavioral disturbance, psychotic disturbance, mood disturbance, and anxiety; F32.A Depression, unspecified; K21.9 Gastro-esophageal reflux disease without esophagitis; M20.40 Other hammer toe(s) (acquired), unspecified foot; L84 Corns and callosities; F81.9 Developmental disorder of scholastic skills, unspecified; Y84.6 Urinary catheterization as the cause of abnormal reaction of the patient, or of later complication, without mention of misadventure at the time of the procedure; Z88.8 Allergy status to other drugs, medicaments and biological substances; Z79.899 Other long term (current) drug therapy; Z79.2 Long term (current) use of antibiotics; Z98.890 Other specified postprocedural states; Z87.891 Personal history of nicotine dependence
CPT/HCPCS: 36415; 51702; 51798; 80048; 80053; 81001; 83605; 85025; 87077; 87086; 87186; 96365-59; 96376; 99285-25; A9270; G0378; J0696; J7030

== ENCOUNTER → 2023-01-14 | Outpatient (CLI) | payer OTHER ==
[~2023-01-14] MED LIST changes: +Macrobid 100 M100 MG PO; +SULTRIDS PO; +VISBIOME 112.51 EACH PO
[2023-01-14 17:55] LABS: BASOPHILS ABSOLUTE AUTO 0.05 K/mm3 (0.00-0.23); BASOPHILS PERCENT AUTO 0 % (0-2); EOSINOPHILS ABSOLUTE AUTO 0.04 K/mm3 (0.00-0.68); EOSINOPHILS PERCENT AUTO 0 % (0-6); Hematocrit 35.1 % (37.0-53.0); Hemoglobin 12.5 g/dL (13.5-17.5); IMMATURE GRAN ABSOLUTE AUTO 0.07 K/mm3 (0.00-0.10); IMMATURE GRAN PERCENT AUTO 1 % (0-1); LYMPHOCYTES ABSOLUTE AUTO 1.17 K/mm3 (0.84-5.20); LYMPHOCYTES PERCENT AUTO 8 % (21-46); MONOCYTES ABSOLUTE AUTO 1.31 K/mm3 (0.16-1.47); MONOCYTES PERCENT AUTO 9 % (4-13); Mean Corpuscular HGB 33.5 pg (26.0-34.0); Mean Corpuscular HGB Conc 35.6 g/dL (31.5-36.5); Mean Corpuscular Volume 94 fL (80-100); Mean Platelet Volume 10.1 fL (9.1-12.4); NEUTROPHILS ABSOLUTE AUTO 11.47 K/mm3 (1.96-9.15); NEUTROPHILS PERCENT AUTO 81 % (41-73); Platelet Count 166 K/mm3 (150-400); RDW Coefficient Variation 12.2 % (11.7-14.2); Red Blood Cell Count 3.73 M/mm3 (4.30-5.90); White Blood Cell Count 14.11 K/mm3 (4.00-11.30)
[2023-01-14 18:07] LABS: Albumin, Blood 3.4 g/dL (3.4-5.0); Albumin/Globulin Ratio 0.8 (0.8-1.8); Bilirubin, Total 0.5 mg/dL (0.1-1.0); Bun/Creatinine Ratio 20.7 (12.0-20.0); Calcium, Blood 9.4 mg/dL (8.5-10.1); Creatinine, Blood 1.4 mg/dL (0.60-1.20); Globulin, Blood 4.2 g/dL (2.2-4.0); Potassium, Blood 4.2 mmol/L (3.5-5.5); Total Protein, Blood 7.6 g/dL (6.4-8.2)
== END | disposition home or self-care (01) ==
LOC: LAB 17:50 → LAB SHORT 17:50
PROVIDERS: Emergency Medicine
DX: N39.0 Urinary tract infection, site not specified (principal); R30.0 Dysuria
CPT/HCPCS: 80053; 85025; 87077; 87086; 87186

== ENCOUNTER → 2023-02-13 | Outpatient (CLI) | payer OTHER ==
[~2023-02-13] MED LIST changes: +Acetaminophen650 M1 PO; +CEFD300 PO; +VISBIOME 112.51 EACH
== END | disposition home or self-care (01) ==
LOC: LAB 14:58 → LAB SHORT 14:58
DX: R34 Anuria and oliguria (principal)
CPT/HCPCS: 87077; 87086; 87186

== ENCOUNTER 2023-02-14 20:29 | Inpatient (IN) | payer OTHER ==
[~2023-02-14 20:29] MED LIST changes: -Acetaminophen650 M1 PO; -CEFD300 PO; -VISBIOME 112.51 EACH
[2023-02-14] MEDS ORDERED: CEPH500 PO (20:42)
[2023-02-14 22:19] LABS: Source, Urine Clean Catch
[2023-02-14 22:19] LABS: BASOPHILS ABSOLUTE AUTO 0.05 K/mm3 (0.00-0.23); BASOPHILS PERCENT AUTO 0 % (0-2); EOSINOPHILS ABSOLUTE AUTO 0.08 K/mm3 (0.00-0.68); EOSINOPHILS PERCENT AUTO 1 % (0-6); Hematocrit 34.7 % (37.0-53.0); Hemoglobin 11.8 g/dL (13.5-17.5); IMMATURE GRAN ABSOLUTE AUTO 0.09 K/mm3 (0.00-0.10); IMMATURE GRAN PERCENT AUTO 1 % (0-1); LYMPHOCYTES ABSOLUTE AUTO 1.22 K/mm3 (0.84-5.20); LYMPHOCYTES PERCENT AUTO 9 % (21-46); MONOCYTES PERCENT AUTO 9 % (4-13); Mean Corpuscular HGB 32.3 pg (26.0-34.0); Mean Corpuscular Volume 95 fL (80-100); NEUTROPHILS ABSOLUTE AUTO 11.32 K/mm3 (1.96-9.15); NEUTROPHILS PERCENT AUTO 81 % (41-73); Platelet Count 176 K/mm3 (150-400); RDW Coefficient Variation 12.1 % (11.7-14.2); RDW Standard Deviation 42.2 fL (35.1-46.3); Red Blood Cell Count 3.65 M/mm3 (4.30-5.90); White Blood Cell Count 13.96 K/mm3 (4.00-11.30)
[2023-02-14 22:34] LABS: Bilirubin, Urine Neg (Neg); Blood, Urine 2+ (Neg); Glucose Qualitative, Urine Neg (Neg); Ketones, Urine Neg (Neg); Leukocyte Esterase, Urine Neg (Neg); Nitrite, Urine Neg (Neg); Protein, Urine 2+ (Neg); Urobilinogen, Urine NORM (Normal)
[2023-02-14 22:46] LABS: Magnesium, Blood 2.4 mg/dL (1.6-2.4)
[2023-02-14 22:47] LABS: Albumin, Blood 3.3 g/dL (3.4-5.0); Albumin/Globulin Ratio 0.8 (0.8-1.8); Bilirubin, Total 0.5 mg/dL (0.1-1.0); Bun/Creatinine Ratio 17.8 (12.0-20.0); Calcium, Blood 9.1 mg/dL (8.5-10.1); Creatinine, Blood 1.46 mg/dL (0.60-1.20); Phosphorus, Blood 3.2 mg/dL (2.5-4.9); Potassium, Blood 4.5 mmol/L (3.5-5.5); Total Protein, Blood 7.3 g/dL (6.4-8.2)
[2023-02-14 23:01] LABS: Influenza A, PCR NEGATIVE (NEGATIVE); Influenza B, PCR NEGATIVE (NEGATIVE); Resp Syncytial Virus, PCR NEGATIVE (NEGATIVE); SARS-Cov-2 (COVID-19) PCR, MMC NEGATIVE (NEGATIVE)
[2023-02-14 23:03] LABS: Appearance, Urine Clear (Clear); Color, Urine Yellow (P-Yellow)
[2023-02-14 23:05] LABS: Bacteria Few /hpf; Squamous Epithelial Cells Few /hpf (Few)
[2023-02-15 03:28] VITALS: BP 105/69
--- NOTE | 2023-02-15 04:06 | NUR ---
ADMIT NOTE 67 YR OLD MALE ADMITTED TO UNIT FROM THE ED WITH DX OF ACUTE ENCEPHALOPATHY, ON ANTIBIOICS FOR UTI. HX SCHIZOPHRENIA, VERBAL - MOANS, SOME WORDS MIXED IN. 2 PERSON ASSIST. NOTE GROIN INFLAMMATION. APPARENT BOIL OF LEFT INNER THIGH. FREY CHANGED WHEN HE GOT TO FLOOR. REPORTED HX OF MOOD ISSUES. WAS ON HEPARIN AT FACILITY HE CAME FROM FOR DVT LEFT LEG. RECEIVED IVF BOLUS IN THE ED FOR BP, BP WNL AT THIS TIME. NPO. CALL LIGHT IN REACH. INSTRUCTIONS GIVEN TO ITS USE. RAILS UP X 3 FOR SAFETY. WILL CONTINU TO MONITOR
[2023-02-15 07:51] VITALS: BP 113/74
--- NOTE | 2023-02-15 10:07 | NUR ---
THIS RN CALLED PT'S ALF AT 1000 ON 02/15/23 TO CLARIFY IF PT HAD RECEIVED FLU VACCINE THIS YEAR. PT IS SCHEDULED W/PCP AT THE END OF THIS MONTH FOR FLU VACCINE. RN ALSO REQUESTED CURRENT MED LIST. RN SPOKE WITH MATIAS AT ALF. MATIAS ALSO REPORTED PT WAS HAVING ISSUES SWALLOWING MEDS/FOOD, SO RN CALLED DR. ROWELL AND ASKED FOR ST ERNESTO[facility] (PT IS CURRENTLY NPO).
[2023-02-15 15:35] VITALS: BP 117/91
[2023-02-15] MEDS ORDERED: Seroquel Xr50 MG PO (16:37)
--- NOTE | 2023-02-15 17:32 | NUR ---
SUMMARY- PT CAN SAY HIS NAME WHEN ASKED, OTHERWISE ORIENTATION CANNOT BE IDENTIFIED DUE TO INNABILITY TO VERBALIZE RESPONSES WELL ENOUGH. X2 ASSIST. PT WAS CALM AND COOPERATIVE MOST OF THE SHIFT, BUT PT WAS AGGITATED, ANXIOUS, AND UNCOOPERATIVE FOR 1-2 HOURS THIS EARLY EVENING. RN CALLED [facility] TO IDENTIFY PT'S BASELINE AND CAREGIVER EXPLAINED THIS WAS "NORMAL" FOR PT OCASSIONALLY. FEVER UP TO 100.9 THIS SHIFT. TYLENOL GIVEN.
[2023-02-15 19:33] VITALS: BP 97/65
--- NOTE | 2023-02-16 03:54 | NUR ---
TISSUE COORDINATOR SUMMARY VSS. AFEBRILE. IVF OF NS INFUSING ORDERED. TOLERATES PO MEDS WITH APPLESAUCE. ASPIRATION PECAUTIONS MAINTAINED. REPOSITIONED AND CLEANED NEEDED. HAS BEEN RESTING QUIETLY WITH FEW INTERRUPTIONS. CALL LIGHT IN REACH. WILL CONTINUE TO MONITOR
[2023-02-16 05:24] VITALS: BP 112/69
[2023-02-16 05:41] LABS: BASOPHILS ABSOLUTE AUTO 0.04 K/mm3 (0.00-0.23); BASOPHILS PERCENT AUTO 1 % (0-2); EOSINOPHILS PERCENT AUTO 1 % (0-6); Hematocrit 32.2 % (37.0-53.0); Hemoglobin 11.1 g/dL (13.5-17.5); IMMATURE GRAN ABSOLUTE AUTO 0.07 K/mm3 (0.00-0.10); IMMATURE GRAN PERCENT AUTO 1 % (0-1); LYMPHOCYTES ABSOLUTE AUTO 1.32 K/mm3 (0.84-5.20); LYMPHOCYTES PERCENT AUTO 17 % (21-46); MONOCYTES ABSOLUTE AUTO 1.27 K/mm3 (0.16-1.47); MONOCYTES PERCENT AUTO 16 % (4-13); Mean Corpuscular HGB 32.7 pg (26.0-34.0); Mean Corpuscular HGB Conc 34.5 g/dL (31.5-36.5); Mean Corpuscular Volume 95 fL (80-100); Mean Platelet Volume 9.9 fL (9.1-12.4); NEUTROPHILS ABSOLUTE AUTO 4.94 K/mm3 (1.96-9.15); NEUTROPHILS PERCENT AUTO 64 % (41-73); Platelet Count 165 K/mm3 (150-400); RDW Coefficient Variation 12.2 % (11.7-14.2); RDW Standard Deviation 42.7 fL (35.1-46.3); Red Blood Cell Count 3.39 M/mm3 (4.30-5.90); White Blood Cell Count 7.74 K/mm3 (4.00-11.30)
[2023-02-16 05:57] LABS: Bun/Creatinine Ratio 13.3 (12.0-20.0); Calcium, Blood 8.6 mg/dL (8.5-10.1); Creatinine, Blood 1.35 mg/dL (0.60-1.20); Potassium, Blood 4.1 mmol/L (3.5-5.5)
[2023-02-16 08:18] VITALS: BP 99/62
[2023-02-16 14:38] VITALS: BP 101/70
--- NOTE | 2023-02-16 17:59 | NUR ---
SHIFT SUMMARY PATIENT INTERACTIVE BUT DIFFICULT TO UNDERSTAND. UP TO CHAIR X 1 WITH 2 PERSON ASSIST. PATIENT WANTING TO FEED SELF FOR MEALS. HAS HX OF SILENT ASPIRATION PER SPEECH THERAPY. FREY IN PLACE. PATIENT IMPULSIVE BUT FOLLOWS DIRECTIONS. PATIENT MORE AWAKE AND INTERACTIVE THIS AFTERNOON.
[2023-02-16 20:27] VITALS: BP 106/69
--- NOTE | 2023-02-17 04:58 | NUR ---
SHIFT SUMMARY PT IS ALERT AND ORIENTED TO SELF. PT IS DIFFICULT TO UNDERSTAND, ABLE TO ANSWER YES OR KNOW QUESTIONS USING THUMBS UP OR DOWN-APPEARED TO WORK WELL. PT MAKING LOUD NOISES-CHECKED ON PT AND HE GIVES A THUMBS UP THAT HE IS OKAY. PT IS COOPERATIVE WITH CARE AND DENIES CHEST PAIN/PRESSURE/TIGHTNESS. PT FREY IN PLACE DRAINING TO GRAVITY. PT IS COOPERATIVE WITH CARE. BED IS LOCKED IN THE LOWEST POSITION WITH CALL LIGHT IN REACH. NO S/S OF DISTRESS NOTED AT THIS TIME.
[2023-02-17 06:18] VITALS: BP 100/61
[2023-02-17 06:40] LABS: Hematocrit 31.1 % (37.0-53.0); Hemoglobin 10.5 g/dL (13.5-17.5); Mean Corpuscular HGB 32.2 pg (26.0-34.0); Mean Corpuscular HGB Conc 33.8 g/dL (31.5-36.5); Mean Corpuscular Volume 95 fL (80-100); Mean Platelet Volume 10.8 fL (9.1-12.4); Platelet Count 188 K/mm3 (150-400); RDW Coefficient Variation 12.1 % (11.7-14.2); RDW Standard Deviation 42.8 fL (35.1-46.3); Red Blood Cell Count 3.26 M/mm3 (4.30-5.90); White Blood Cell Count 4.93 K/mm3 (4.00-11.30)
[2023-02-17 07:20] LABS: Bun/Creatinine Ratio 15.7 (12.0-20.0); Calcium, Blood 8.6 mg/dL (8.5-10.1); Creatinine, Blood 1.15 mg/dL (0.60-1.20)
[2023-02-17 07:21] VITALS: BP 92/60
[2023-02-17] MEDS ORDERED: VISBIOME 112.51 EACH (11:38)
[2023-02-17] MEDS ORDERED: CEFD300 PO (11:38)
[2023-02-17] MEDS ORDERED: Acetaminophen650 M1 PO (11:39)
--- NOTE | 2023-02-17 14:03 | NUR ---
DISCHARGE SUMMARY: PT WAS ADMITTED FOR ACUTE ENCEPHALOPATHY. WAS ALERT AND ABLE TO MAKE NEED KNOWN THROUGH YES OR NO QUESTIONS. CATH PLACED AND DRAINING CLEAR YELLOW URINE. IV TO RIGHT FOREARM WAS DC D AFTER RUNNING DOSE OF ROCEPHIN. REP FROM [facility] PICKED HIM UP ABOUT 1230.
== END 2023-02-17 12:23 | disposition home health service (06) | DRG 698 ==
LOC: ER 20:29 → MEDS 02-15 01:52
PROVIDERS: Emergency Medicine; Internal Medicine; ADMIT Internal Medicine
DX: T83.511A Infection and inflammatory reaction due to indwelling urethral catheter, initial encounter (principal); A41.50 Gram-negative sepsis, unspecified; G92.8 Other toxic encephalopathy; N12 Tubulo-interstitial nephritis, not specified as acute or chronic; N17.9 Acute kidney failure, unspecified; E87.1 Hypo-osmolality and hyponatremia; J98.11 Atelectasis; F03.90 Unspecified dementia, unspecified severity, without behavioral disturbance, psychotic disturbance, mood disturbance, and anxiety; F20.9 Schizophrenia, unspecified; K59.09 Other constipation; E03.9 Hypothyroidism, unspecified; Z20.822 Contact with and (suspected) exposure to COVID-19; K21.9 Gastro-esophageal reflux disease without esophagitis; F32.A Depression, unspecified; E86.0 Dehydration; Y84.6 Urinary catheterization as the cause of abnormal reaction of the patient, or of later complication, without mention of misadventure at the time of the procedure; Z98.890 Other specified postprocedural states; Z88.8 Allergy status to other drugs, medicaments and biological substances; Z79.2 Long term (current) use of antibiotics; Z79.899 Other long term (current) drug therapy
CPT/HCPCS: 0241U; 36415; 70450; 71046; 74177; 80048; 80053; 81001; 83605; 83735; 84100; 84145; 85025; 85027; 87040; 87086; 92526; 92610; 93005; 93010; 96361; 96365-59; 97162; 97530; 99285-25; A9270; J0696; J1650; J7030; Q9967

== ENCOUNTER 2023-04-05 14:37 | Emergency (ER) | payer OTHER ==
[~2023-04-05] VITALS: Ht 180.3 cm; Wt 59.0 kg
[~2023-04-05 14:37] MED LIST changes: +Acetaminophen650 M1 PO; +CEFD300 PO; +VISBIOME 112.51 EACH
[2023-04-05 17:30] VITALS: BP 124/78
== END 2023-04-05 18:58 | disposition home or self-care (01) ==
LOC: ER 14:37
DX: T83.021A Displacement of indwelling urethral catheter, initial encounter (principal)
CPT/HCPCS: 51702; 51798; 99283-25

== ENCOUNTER → 2023-12-06 | Outpatient (CLI) | payer OTHER ==
[2023-12-06 16:56] LABS: BASOPHILS ABSOLUTE AUTO 0.05 K/mm3 (0.00-0.23); BASOPHILS PERCENT AUTO 1 % (0-2); EOSINOPHILS ABSOLUTE AUTO 0.05 K/mm3 (0.00-0.68); EOSINOPHILS PERCENT AUTO 1 % (0-6); Hematocrit 38.3 % (37.0-53.0); IMMATURE GRAN ABSOLUTE AUTO 0.04 K/mm3 (0.00-0.10); IMMATURE GRAN PERCENT AUTO 1 % (0-1); LYMPHOCYTES PERCENT AUTO 19 % (21-46); MONOCYTES ABSOLUTE AUTO 0.51 K/mm3 (0.16-1.47); MONOCYTES PERCENT AUTO 7 % (4-13); Mean Corpuscular HGB 32.8 pg (26.0-34.0); Mean Corpuscular HGB Conc 33.9 g/dL (31.5-36.5); Mean Corpuscular Volume 97 fL (80-100); Mean Platelet Volume 11.1 fL (9.1-12.4); NEUTROPHILS ABSOLUTE AUTO 5.07 K/mm3 (1.96-9.15); NEUTROPHILS PERCENT AUTO 72 % (41-73); Platelet Count 230 K/mm3 (150-400); RDW Coefficient Variation 12.3 % (11.7-14.2); RDW Standard Deviation 43.4 fL (35.1-46.3); Red Blood Cell Count 3.96 M/mm3 (4.30-5.90); White Blood Cell Count 7.02 K/mm3 (4.00-11.30)
[2023-12-06 17:44] LABS: Albumin, Blood 3.8 g/dL (3.4-5.0); Bilirubin, Total 0.4 mg/dL (0.1-1.0); Bun/Creatinine Ratio 23.1 (12.0-20.0); Calcium, Blood 9.2 mg/dL (8.5-10.1); Creatinine, Blood 0.99 mg/dL (0.60-1.20); Globulin, Blood 3.7 g/dL (2.2-4.0); Potassium, Blood 3.8 mmol/L (3.5-5.5); Total Protein, Blood 7.5 g/dL (6.4-8.2)
== END ==
LOC: LAB SHORT 15:03 → LAB 15:03
PROVIDERS: Nurse Practitioner Psychiatric/Mental Health
DX: F20.9 Schizophrenia, unspecified (principal)
CPT/HCPCS: 80053; 85025

== ENCOUNTER 2024-03-24 15:03 | Emergency (ER) | payer OTHER ==
[~2024-03-24] VITALS: Ht 180.3 cm; Wt 74.8 kg
[2024-03-24 19:43] LABS: Source, Urine Foley catheter
[2024-03-24 19:46] LABS: Appearance, Urine Cloudy (Clear); Bilirubin, Urine Neg (Neg); Blood, Urine 5+ (Neg); Color, Urine Yellow (P-Yellow); Glucose Qualitative, Urine Neg (Neg); Ketones, Urine 2+ (Neg); Leukocyte Esterase, Urine 3+ (Neg); Nitrite, Urine Neg (Neg); Protein, Urine 3+ (Neg); Urobilinogen, Urine NORM (Normal); pH, Urine 6.5 (5.0-8.0)
[2024-03-24 19:56] LABS: Bacteria Many /hpf; Squamous Epithelial Cells Not Seen /hpf (Few); White Blood Cells, Urine TNTC /hpf (0-5)
[2024-03-24] MEDS ORDERED: CEPH500 PO (20:40)
[2024-03-24] MEDS ORDERED: Cephalexin Monohydrate 500 MG Cap PO ONE (20:40)
== END 2024-03-24 20:50 | disposition home or self-care (01) ==
LOC: ER 15:03
PROVIDERS: Student in an Organized Health Care Education/Training Program
DX: T83.031A Leakage of indwelling urethral catheter, initial encounter (principal); N39.0 Urinary tract infection, site not specified; E03.9 Hypothyroidism, unspecified; K21.9 Gastro-esophageal reflux disease without esophagitis; F81.89 Other developmental disorders of scholastic skills; R47.01 Aphasia; Z79.890 Hormone replacement therapy; Z79.899 Other long term (current) drug therapy
CPT/HCPCS: 51702; 51798; 81001; 87077; 87086; 87186; 99283-25; A9270

== ENCOUNTER → 2024-05-02 | Outpatient (CLI) | payer OTHER ==
[2024-05-02 14:03] LABS: Source, Urine Foley catheter
[2024-05-02 18:43] LABS: Appearance, Urine Hazy (Clear); Bilirubin, Urine Neg (Neg); Blood, Urine 2+ (Neg); Color, Urine Yellow (P-Yellow); Glucose Qualitative, Urine Neg (Neg); Ketones, Urine Neg (Neg); Leukocyte Esterase, Urine 3+ (Neg); Nitrite, Urine Neg (Neg); Protein, Urine 2+ (Neg); Specific Gravity, Urine 1.015 (1.003-1.022); Urobilinogen, Urine NORM (Normal)
[2024-05-02 19:04] LABS: Bacteria Mod /hpf; Red Blood Cells, Urine 0-2 /hpf (0-2); Squamous Epithelial Cells Not Seen /hpf (Few); White Blood Cells, Urine 25-50 /hpf (0-5)
== END ==
LOC: LAB 13:40 → LAB SHORT 13:40
PROVIDERS: Family Medicine
DX: N39.0 Urinary tract infection, site not specified (principal)
CPT/HCPCS: 81001; 87077; 87086; 87186

== ENCOUNTER → 2024-05-28 | Outpatient (CLI) | payer OTHER | LOC: LAB SHORT 11:35 → LAB 11:35 | DX: R34 Anuria and oliguria (principal) | CPT/HCPCS: 87086 ==

== ENCOUNTER → 2024-06-13 | Outpatient (CLI) | payer OTHER ==
[2024-06-13 18:16] LABS: Source, Urine Voided
[2024-06-13 19:26] LABS: Appearance, Urine Turbid (Clear); Bilirubin, Urine Neg (Neg); Blood, Urine 3+ (Neg); Color, Urine Yellow (P-Yellow); Glucose Qualitative, Urine Neg (Neg); Ketones, Urine 1+ (Neg); Leukocyte Esterase, Urine 2+ (Neg); Nitrite, Urine Neg (Neg); Protein, Urine 3+ (Neg); Urobilinogen, Urine NORM (Normal)
[2024-06-13 19:32] LABS: White Blood Cells, Urine 50-100 /hpf (0-5)
[2024-06-13 19:33] LABS: Bacteria Few /hpf; Squamous Epithelial Cells Rare /hpf (Few)
[2024-06-13 19:34] LABS: Renal Epithelial Rare /hpf (0-Rare)
== END | disposition home or self-care (01) ==
LOC: LAB SHORT 18:14 → LAB 18:14
PROVIDERS: Urology
DX: N39.0 Urinary tract infection, site not specified (principal)
CPT/HCPCS: 81001; 87077; 87086; 87147; 87186

== ENCOUNTER → 2024-07-17 | Outpatient (CLI) | payer OTHER ==
[2024-07-17 18:34] LABS: Source, Urine Voided
[2024-07-17 19:54] LABS: Appearance, Urine Hazy (Clear); Bilirubin, Urine Neg (Neg); Blood, Urine 4+ (Neg); Color, Urine Yellow (P-Yellow); Glucose Qualitative, Urine Neg (Neg); Ketones, Urine Neg (Neg); Leukocyte Esterase, Urine 3+ (Neg); Nitrite, Urine Neg (Neg); Protein, Urine 2+ (Neg); Urobilinogen, Urine NORM (Normal)
[2024-07-17 20:01] LABS: Bacteria Many /hpf; Renal Epithelial Rare /hpf (0-Rare); Squamous Epithelial Cells Not Seen /hpf (Few); White Blood Cells, Urine TNTC /hpf (0-5)
== END ==
LOC: LAB 18:28 → LAB SHORT 18:28
PROVIDERS: Urology
DX: N39.0 Urinary tract infection, site not specified (principal)
CPT/HCPCS: 81001; 87077; 87086; 87186

== ENCOUNTER → 2024-09-24 | Outpatient (CLI) | payer OTHER | LOC: LAB SHORT 12:30 → LAB 12:30 | PROVIDERS: Urology | DX: R97.20 Elevated prostate specific antigen [PSA] (principal) | CPT/HCPCS: 84153 ==

== ENCOUNTER → 2024-09-27 | Outpatient (CLI) | payer OTHER | LOC: LAB SHORT 11:30 → LAB 11:30 | DX: R41.89 Other symptoms and signs involving cognitive functions and awareness (principal); R30.0 Dysuria; Z97.8 Presence of other specified devices ==

== ENCOUNTER → 2024-12-21 | Outpatient (CLI) | payer OTHER ==
[~2024-12-21] MED LIST changes: +DIVA125EC PO; +LORA.5 PO
[2024-12-21 14:11] LABS: Source, Urine Foley catheter
[2024-12-21 14:37] LABS: Bilirubin, Urine Neg (Neg); Color, Urine Yellow (P-Yellow); Glucose Qualitative, Urine Neg (Neg); Ketones, Urine Neg (Neg); Leukocyte Esterase, Urine 3+ (Neg); Protein, Urine 1+ (Neg); Specific Gravity, Urine 1.010 (1.003-1.022); Urobilinogen, Urine NORM (Normal)
[2024-12-21 14:46] LABS: White Blood Cells, Urine 25-50 /hpf (0-5)
== END ==
LOC: LAB SHORT 14:00 → LAB 14:00
PROVIDERS: Family Medicine
DX: R82.998 Other abnormal findings in urine (principal); R53.83 Other fatigue; R82.90 Unspecified abnormal findings in urine
CPT/HCPCS: 81001; 87077; 87086; 87186

== ENCOUNTER → 2025-02-05 | Outpatient (CLI) | payer OTHER ==
[2025-02-05 16:17] LABS: Bilirubin, Urine Neg (Neg); Color, Urine Yellow (P-Yellow); Glucose Qualitative, Urine Neg (Neg); Ketones, Urine Neg (Neg); Leukocyte Esterase, Urine 3+ (Neg); Protein, Urine 2+ (Neg); Specific Gravity, Urine 1.010 (1.003-1.022); Urobilinogen, Urine NORM (Normal)
[2025-02-05 16:43] LABS: White Blood Cells, Urine TNTC /hpf (0-5)
== END ==
LOC: LAB 13:47 → LAB SHORT 13:47
PROVIDERS: Urology
DX: N40.1 Benign prostatic hyperplasia with lower urinary tract symptoms (principal); Z46.6 Encounter for fitting and adjustment of urinary device
CPT/HCPCS: 81001; 87077; 87086; 87186

== ENCOUNTER → 2025-02-27 | Outpatient (CLI) | payer OTHER ==
[2025-02-27 16:50] LABS: Bilirubin, Urine Neg (Neg); Color, Urine Yellow (P-Yellow); Glucose Qualitative, Urine Neg (Neg); Ketones, Urine Neg (Neg); Leukocyte Esterase, Urine 3+ (Neg); Protein, Urine 2+ (Neg); Specific Gravity, Urine 1.010 (1.003-1.022); Urobilinogen, Urine NORM (Normal)
[2025-02-27 16:59] LABS: White Blood Cells, Urine TNTC /hpf (0-5)
[2025-02-27 17:00] LABS: Red Blood Cells, Urine 25-50 /hpf (0-2)
== END ==
LOC: LAB SHORT 15:15 → LAB 15:15
PROVIDERS: Physician Assistant
DX: Z46.6 Encounter for fitting and adjustment of urinary device (principal); Z87.440 Personal history of urinary (tract) infections; R33.8 Other retention of urine; N39.498 Other specified urinary incontinence
CPT/HCPCS: 81001; 87077; 87086; 87186

== ENCOUNTER → 2025-04-03 | Outpatient (CLI) | payer OTHER ==
[2025-04-03 18:54] LABS: Bilirubin, Urine Neg (Neg); Color, Urine Yellow (P-Yellow); Glucose Qualitative, Urine Neg (Neg); Ketones, Urine Neg (Neg); Leukocyte Esterase, Urine 2+ (Neg); Protein, Urine 2+ (Neg); Specific Gravity, Urine 1.015 (1.003-1.022); Urobilinogen, Urine NORM (Normal)
[2025-04-03 19:01] LABS: Red Blood Cells, Urine 0-2 /hpf (0-2)
== END ==
LOC: LAB 13:40 → LAB SHORT 13:40
PROVIDERS: Urology
DX: N39.0 Urinary tract infection, site not specified (principal)
CPT/HCPCS: 81001; 87077; 87086; 87186